=== PATIENT | female | born 1935 | race Caucasian/White ===

== ENCOUNTER 2022-09-19 21:30 | Inpatient (IN) | payer MEDICARE, BC ==
[2022-09-19] MEDS ORDERED: Pantoprazole 40 MG Vial IVPUSH ONE (21:38)
[2022-09-19] MEDS ORDERED: Ondansetron 4 MG/2 ML SDV IVPUSH ONE (21:38)
[2022-09-19 22:08] LABS: HEMOGLOBIN 13.5 g/dL (11.4-15.5); MEAN CORPUSCULAR HEMOGLOBIN 29.6 pg (23.9-33.9); MEAN CORPUSCULAR HGB CONC 33.7 g/dL (31.9-34.8); MEAN CORPUSCULAR VOLUME 87.7 fL (76.7-100.5); MEAN PLATELET VOLUME 6.6 fL (7.1-12.4); PLATELET COUNT,PLT 502 x10(3)uL (151-488); RED BLOOD CELL COUNT 4.56 x10(6)uL (3.60-5.20); RED CELL DISTRIBUTION WIDTH 13.7 % (12.3-16.5); WHITE BLOOD CELL COUNT,WBC 14.5 x10-3/uL (3.0-10.3)
[2022-09-19 22:10] LABS: BASE EXCESS VENOUS,POC 10 mmol/L (-2 - 3+); PCO2 VENOUS,POC 37 mmHg (41-51); PH VENOUS,POC 7.56 pH Units (7.32-7.43)
[2022-09-19 22:12] LABS: BLOOD UREA NITROGEN,BUN 25 mg/dL (7-18); BUN/CREATININE RATIO 19.2 (9-20); CALCIUM 10.7 mg/dL (8.6-10.2); CARBON DIOXIDE,CO2 32 mmol/L (21-32); CHLORIDE,CL 97 mmol/L (100-110); CREATININE 1.3 mg/dL (0.55-1.02); ESTIMATED GFR 39 mL/min (>60); GLUCOSE RANDOM 236 mg/dL (80-116); POTASSIUM,K 3.1 mmol/L (3.5-5.3); SODIUM,NA 141 mmol/L (135-145)
[2022-09-19 22:18] LABS: A/G RATIO 0.8; ALANINE AMINOTRANSFERASE,ALT 32 U/L (12-36); ALBUMIN 3.3 g/dL (2.9-4.5); ALKALINE PHOSPHATASE 120 IU/L (56-112); AMYLASE 55 U/L (25-115); ASPARTATE AMNIOTRANSFERASE,AST 25 IU/L (5-25); BAND PERCENT MAN 2 % (0-6); LYMPHOCYTES PERCENT MAN 5 % (13-37); MONOCYTES PERCENT MAN 5 % (4-12); PROTEIN TOTAL,TP 7.6 g/dL (6.0-8.0); SEG NEUTROPHILS PERCENT MAN 88 % (46-82)
[2022-09-19 22:25] LABS: TROPONIN I 17.1 pg/mL (4.0-60.3)
[2022-09-19 22:26] LABS: LACTIC ACID 4.4 mmol/L (0.4-2.0)
[2022-09-19 22:42] LABS: INFLUENZA A NAA NEGATIVE (NEGATIVE); INFLUENZA B NAA NEGATIVE (NEGATIVE)
[2022-09-19] MEDS ORDERED: Iopamidol 755 Mg/ML 100 ML Bottle IV ONE (22:43)
[2022-09-19 22:51] LABS: CORONAVIRUS COVID-19 NAA NEGATIVE (NEGATIVE)
[2022-09-19] MEDS ORDERED: Morphine 4 MG/ML VIAL IVPUSH ONE (23:53)
[2022-09-19] MEDS: cefTRIAXone 1 GM Vial IVPUSH SCH (23:59)
[2022-09-20] MEDS: Azithromycin 500 MG in Sodium Chloride 0.9% 250 ML IV SCH ×2 (00:05→23:35)
[2022-09-20] MEDS ORDERED: Acetaminophen 325 MG Tab PO PRN (00:12)
[2022-09-20] MEDS ORDERED: Sennosides/Docusate Sodium 50-8.6 MG Tab PO PRN (00:12)
[2022-09-20] MEDS ORDERED: Albuterol 0.5% 5 MG/ML Neb Soln 20 ML Bottle NEB PRN (00:12)
[2022-09-20] MEDS ORDERED: Enoxaparin 40 MG/0.4 ML Syringe SUBCUT SCH (00:15)
[2022-09-20 00:21] LABS: BILIRUBIN,URINE NEGATIVE (NEGATIVE); GLUCOSE,URINE NORMAL (NORMAL); KETONES,URINE 15 mg/dL (NEGATIVE); LEUKOCYTE ESTERASE,URINE MODERATE (NEGATIVE); NITRITE,URINE NEGATIVE (NEGATIVE); OCCULT BLOOD,URINE MODERATE (NEGATIVE); PROTEIN,URINE NEGATIVE (NEGATIVE); UROBILINOGEN,URINE NORMAL (NEGATIVE)
[2022-09-20 00:32] LABS: APPEARANCE,URINE CLOUDY (CLEAR); BACTERIA,URINE FEW (NS); COLOR,URINE YELLOW (YELLOW); RBC,URINE 0-5 (0-5); SQUAMOUS EPITHELIAL CELLS,UR FEW (NS,R,O)
[2022-09-20 00:33] LABS: AMORPHOUS SEDIMENT,URINE MODERATE
[2022-09-20] MEDS: Albuterol/Ipratropium 3.0-0.5 MG/3 ML Neb Soln NEB SCH ×6 (01:51→23:30)
[2022-09-20] MEDS: Sodium Chloride 0.9% 1,000 ML IV SCH ×2 (04:22→13:54)
[2022-09-20 06:37] LABS: HEMOGLOBIN 10.8 g/dL (11.4-15.5); MEAN CORPUSCULAR HEMOGLOBIN 29.6 pg (23.9-33.9); MEAN CORPUSCULAR HGB CONC 33.8 g/dL (31.9-34.8); MEAN CORPUSCULAR VOLUME 87.7 fL (76.7-100.5); MEAN PLATELET VOLUME 6.5 fL (7.1-12.4); PLATELET COUNT,PLT 402 x10(3)uL (151-488); RED BLOOD CELL COUNT 3.64 x10(6)uL (3.60-5.20); RED CELL DISTRIBUTION WIDTH 13.7 % (12.3-16.5); WHITE BLOOD CELL COUNT,WBC 16.3 x10-3/uL (3.0-10.3)
[2022-09-20 06:48] LABS: A/G RATIO 0.7; ALANINE AMINOTRANSFERASE,ALT 30 U/L (12-36); ALBUMIN 2.4 g/dL (2.9-4.5); ALKALINE PHOSPHATASE 99 IU/L (56-112); ASPARTATE AMNIOTRANSFERASE,AST 28 IU/L (5-25); BILIRUBIN TOTAL 0.5 mg/dL (0.1-1.3); BLOOD UREA NITROGEN,BUN 42 mg/dL (7-18); CARBON DIOXIDE,CO2 27 mmol/L (21-32); CHLORIDE,CL 103 mmol/L (100-110); CREATININE 1.2 mg/dL (0.55-1.02); EST CRCL DRUG DOSING (CG) 22.83 mL/min; ESTIMATED GFR 43 mL/min (>60); GLUCOSE RANDOM 180 mg/dL (80-116); POTASSIUM,K 3.8 mmol/L (3.5-5.3); SODIUM,NA 138 mmol/L (135-145)
[2022-09-20 06:51] LABS: BAND PERCENT MAN 7 % (0-6); LYMPHOCYTES PERCENT MAN 12 % (13-37); MONOCYTES PERCENT MAN 6 % (4-12); SEG NEUTROPHILS PERCENT MAN 75 % (46-82)
[2022-09-20 06:58] LABS: LACTIC ACID 2.3 mmol/L (0.4-2.0)
[2022-09-20] MEDS: Pantoprazole 40 MG Vial IVPUSH SCH ×2 (10:51→20:41)
[2022-09-20] MEDS: methylPREDNISolone Sodium Succinate 40 MG/1 ML SDV IVPUSH SCH ×2 (10:55→17:16)
[2022-09-20] MEDS: Sodium Chloride 0.9% 10 ML Syringe FLUSH PRN (17:18)
[2022-09-20] MEDS: Enoxaparin 30 MG/0.3 ML Syringe SUBCUT SCH (20:40)
[2022-09-20] MEDS: cefTRIAXone 1 GM Vial IVPUSH SCH (23:27)
[2022-09-21] MEDS: Sodium Chloride 0.9% 10 ML Syringe FLUSH PRN ×4 (00:44→21:31)
[2022-09-21] MEDS: methylPREDNISolone Sodium Succinate 40 MG/1 ML SDV IVPUSH SCH ×3 (00:53→17:26)
[2022-09-21] MEDS: Albuterol/Ipratropium 3.0-0.5 MG/3 ML Neb Soln NEB SCH ×3 (06:49→18:39)
[2022-09-21 07:26] LABS: HEMATOCRIT 30.9 % (34.2-48.2); HEMOGLOBIN 10.4 g/dL (11.4-15.5); MEAN CORPUSCULAR HEMOGLOBIN 29.5 pg (23.9-33.9); MEAN CORPUSCULAR HGB CONC 33.7 g/dL (31.9-34.8); MEAN CORPUSCULAR VOLUME 87.5 fL (76.7-100.5); MEAN PLATELET VOLUME 6.8 fL (7.1-12.4); PLATELET COUNT,PLT 402 x10(3)uL (151-488); RED BLOOD CELL COUNT 3.53 x10(6)uL (3.60-5.20); RED CELL DISTRIBUTION WIDTH 14.3 % (12.3-16.5); WHITE BLOOD CELL COUNT,WBC 21.1 x10-3/uL (3.0-10.3)
[2022-09-21 07:37] LABS: A/G RATIO 0.7; ALANINE AMINOTRANSFERASE,ALT 30 U/L (12-36); ALBUMIN 2.6 g/dL (2.9-4.5); ALKALINE PHOSPHATASE 94 IU/L (56-112); ASPARTATE AMNIOTRANSFERASE,AST 29 IU/L (5-25); BILIRUBIN TOTAL 0.4 mg/dL (0.1-1.3); BLOOD UREA NITROGEN,BUN 28 mg/dL (7-18); BUN/CREATININE RATIO 25.5 (9-20); CALCIUM 9.4 mg/dL (8.6-10.2); CARBON DIOXIDE,CO2 25 mmol/L (21-32); CHLORIDE,CL 106 mmol/L (100-110); CREATININE 1.1 mg/dL (0.55-1.02); ESTIMATED GFR 48 mL/min (>60); GLUCOSE RANDOM 158 mg/dL (80-116); PROTEIN TOTAL,TP 6.4 g/dL (6.0-8.0); SODIUM,NA 142 mmol/L (135-145)
[2022-09-21 07:38] LABS: BAND PERCENT MAN 3 % (0-6); LYMPHOCYTES PERCENT MAN 4 % (13-37); SEG NEUTROPHILS PERCENT MAN 93 % (46-82)
[2022-09-21] MEDS ORDERED: Losartan 100 MG Tab PO SCH (09:00)
[2022-09-21] MEDS: amLODIPine 5 MG Tab PO SCH (09:10)
[2022-09-21] MEDS: Potassium Chloride 20 MEQ Tab.ER PO SCH (09:10)
[2022-09-21] MEDS: Pantoprazole 40 MG Vial IVPUSH SCH ×2 (09:11→21:23)
[2022-09-21] MEDS: Multivitamins with Iron/Calcium/Folic Acid/Minerals Tab PO SCH (09:11)
[2022-09-21] MEDS: Enoxaparin 30 MG/0.3 ML Syringe SUBCUT SCH (21:23)
[2022-09-22] MEDS: Albuterol/Ipratropium 3.0-0.5 MG/3 ML Neb Soln NEB SCH ×4 (00:03→18:31)
[2022-09-22] MEDS: Sodium Chloride 0.9% 10 ML Syringe FLUSH PRN ×8 (00:05→23:01)
[2022-09-22] MEDS: Azithromycin 500 MG in Sodium Chloride 0.9% 250 ML IV SCH ×2 (00:07→23:06)
[2022-09-22] MEDS: methylPREDNISolone Sodium Succinate 40 MG/1 ML SDV IVPUSH SCH ×3 (01:30→16:36)
[2022-09-22 06:22] LABS: HEMATOCRIT 32.5 % (34.2-48.2); HEMOGLOBIN 10.7 g/dL (11.4-15.5); MEAN CORPUSCULAR HEMOGLOBIN 29.1 pg (23.9-33.9); MEAN CORPUSCULAR HGB CONC 32.8 g/dL (31.9-34.8); MEAN CORPUSCULAR VOLUME 88.6 fL (76.7-100.5); MEAN PLATELET VOLUME 6.5 fL (7.1-12.4); PLATELET COUNT,PLT 435 x10(3)uL (151-488); RED BLOOD CELL COUNT 3.67 x10(6)uL (3.60-5.20); RED CELL DISTRIBUTION WIDTH 14.3 % (12.3-16.5); WHITE BLOOD CELL COUNT,WBC 24.8 x10-3/uL (3.0-10.3)
[2022-09-22 06:27] LABS: BLOOD UREA NITROGEN,BUN 28 mg/dL (7-18); BUN/CREATININE RATIO 23.3 (9-20); CALCIUM 9.6 mg/dL (8.6-10.2); CARBON DIOXIDE,CO2 27 mmol/L (21-32); CHLORIDE,CL 106 mmol/L (100-110); CREATININE 1.2 mg/dL (0.55-1.02); EST CRCL DRUG DOSING (CG) 22.83 mL/min; ESTIMATED GFR 43 mL/min (>60); GLUCOSE RANDOM 166 mg/dL (80-116); POTASSIUM,K 3.6 mmol/L (3.5-5.3); SODIUM,NA 142 mmol/L (135-145)
[2022-09-22 07:01] LABS: LYMPHOCYTES PERCENT MAN 3 % (13-37); MONOCYTES PERCENT MAN 1 % (4-12); SEG NEUTROPHILS PERCENT MAN 96 % (46-82)
[2022-09-22] MEDS: Potassium Chloride 20 MEQ Tab.ER PO SCH ×2 (08:41→20:23)
[2022-09-22] MEDS: amLODIPine 5 MG Tab PO SCH (08:41)
[2022-09-22] MEDS: Multivitamins with Iron/Calcium/Folic Acid/Minerals Tab PO SCH (08:41)
[2022-09-22] MEDS: Pantoprazole 40 MG Vial IVPUSH SCH ×2 (08:48→20:31)
[2022-09-22] MEDS ORDERED: Iopamidol 755 Mg/ML 100 ML Bottle IV ONE (11:18)
[2022-09-22] MEDS ORDERED: Diatrizoate Meglumine/Diatrizoate Sodium 37% 30 ML Bottle PO ONE (11:18)
[2022-09-22] MEDS: Enoxaparin 30 MG/0.3 ML Syringe SUBCUT SCH (20:24)
[2022-09-22] MEDS: cefTRIAXone 1 GM Vial IVPUSH SCH ×2 (22:59)
[2022-09-23] MEDS: Albuterol/Ipratropium 3.0-0.5 MG/3 ML Neb Soln NEB SCH ×3 (00:15→12:07)
[2022-09-23] MEDS: methylPREDNISolone Sodium Succinate 40 MG/1 ML SDV IVPUSH SCH ×2 (00:42→08:30)
[2022-09-23] MEDS: Sodium Chloride 0.9% 10 ML Syringe FLUSH PRN ×2 (00:43→08:27)
[2022-09-23 06:42] LABS: HEMATOCRIT 31.4 % (34.2-48.2); HEMOGLOBIN 10.6 g/dL (11.4-15.5); MEAN CORPUSCULAR HEMOGLOBIN 29.5 pg (23.9-33.9); MEAN CORPUSCULAR HGB CONC 33.8 g/dL (31.9-34.8); MEAN CORPUSCULAR VOLUME 87.2 fL (76.7-100.5); MEAN PLATELET VOLUME 6.8 fL (7.1-12.4); PLATELET COUNT,PLT 408 x10(3)uL (151-488); RED CELL DISTRIBUTION WIDTH 14.3 % (12.3-16.5); WHITE BLOOD CELL COUNT,WBC 19.4 x10-3/uL (3.0-10.3)
[2022-09-23 06:48] LABS: BLOOD UREA NITROGEN,BUN 24 mg/dL (7-18); BUN/CREATININE RATIO 26.7 (9-20); CALCIUM 9.3 mg/dL (8.6-10.2); CARBON DIOXIDE,CO2 26 mmol/L (21-32); CHLORIDE,CL 106 mmol/L (100-110); CREATININE 0.9 mg/dL (0.55-1.02); EST CRCL DRUG DOSING (CG) 30.44 mL/min; ESTIMATED GFR 61 mL/min (>60); GLUCOSE RANDOM 145 mg/dL (80-116); SODIUM,NA 141 mmol/L (135-145)
[2022-09-23 06:56] LABS: BAND PERCENT MAN 2 % (0-6); LYMPHOCYTES PERCENT MAN 2 % (13-37); MONOCYTES PERCENT MAN 1 % (4-12); SEG NEUTROPHILS PERCENT MAN 95 % (46-82)
[2022-09-23] MEDS: Potassium Chloride 20 MEQ Tab.ER PO SCH (08:29)
[2022-09-23] MEDS: Multivitamins with Iron/Calcium/Folic Acid/Minerals Tab PO SCH (08:29)
[2022-09-23] MEDS: amLODIPine 5 MG Tab PO SCH (08:29)
[2022-09-23] MEDS: Pantoprazole 40 MG Vial IVPUSH SCH (08:29)
[2022-09-23 13:21] VITALS: BP 135/67; PULSE 88
== END 2022-09-23 13:10 | disposition home or self-care (01) | DRG 380 ==
LOC: FB.ED 21:30 → FB.MS 09-20 00:12 → UNDOADMIN 09-20 00:31 → FB.MS 09-20 00:31 → UNDODISIN 09-23 13:10
PROVIDERS: ADMIT Emergency Medicine; ATTEND Family Medicine
DX: K31.1 Adult hypertrophic pyloric stenosis (principal); J18.9 Pneumonia, unspecified organism; K44.9 Diaphragmatic hernia without obstruction or gangrene; E87.6 Hypokalemia; M19.90 Unspecified osteoarthritis, unspecified site; R82.71 Bacteriuria; N39.0 Urinary tract infection, site not specified; Z96.651 Presence of right artificial knee joint; I10 Essential (primary) hypertension; Z79.899 Other long term (current) drug therapy; Z88.8 Allergy status to other drugs, medicaments and biological substances; Z98.49 Cataract extraction status, unspecified eye; Z90.89 Acquired absence of other organs; Z90.49 Acquired absence of other specified parts of digestive tract; Z98.890 Other specified postprocedural states; Z90.710 Acquired absence of both cervix and uterus; Z90.721 Acquired absence of ovaries, unilateral; Z88.0 Allergy status to penicillin
CPT/HCPCS: 0240U; 36415; 71045; 71260; 74177; 80048; 80053; 81001; 82150; 83605; 83690; 83880; 84484; 85025; 87040; 87086; 93005; 93010; 94640; 96374; 96375; 99222; 99232; 99239; 99285; 99285-25; A9270-GY; C9113; J0456; J0696; J1650; J2270; J2405; J2920; J3490; J7030; J7050; J7620; Q9963; Q9967